=== PATIENT | female | born 1995 | race Caucasian/White ===

== ENCOUNTER 2020-02-19 09:15 | Inpatient (IN) | payer BC ==
[~2020-02-19] VITALS: Ht 172.7 cm; Wt 93.0 kg
--- NOTE | 2020-02-19 09:28 | NUR ---
Dr. Hayden at bedside for MSE
[2020-02-19 09:39] LABS: *BILIRUBIN,URIN NEGATIVE (NEGATIVE); *BLOOD, URINE 3+ (NEGATIVE); *CLARITY,URINE CLOUDY (CLEAR); *COLOR,URINE DARK YELLOW (YELLOW); *KETONES,URINE 2+ (NEGATIVE); *UROBILINOGEN,URINE 0.2 E.U./dl (NORMAL); LEUKOCYTE ESTERASE ,URINE 2+ (NEGATIVE); NITRITE, URINE POSITIVE (NEGATIVE); UGLUCOSE NEGATIVE (NEGATIVE)
[2020-02-19 09:42] LABS: BASOPHILS # (AUTO) 0.1 K/uL (0.0-8.0); BASOPHILS % (AUTO) 0.4 % (0.0-2.0); EOSINOPHILS % (AUTO) 0.1 % (0.0-7.0); HEMATOCRIT 42.5 % (31.2-41.9); HEMOGLOBIN 14.1 g/dL (10.9-14.3); LYMPHOCYTES # (AUTO) 0.6 K/uL (20.0-40.0); LYMPHOCYTES % (AUTO) 2.4 % (20.5-51.5); MEAN CORPUSCULAR HEMOGLOBIN 28.4 uug (24.7-32.8); MEAN CORPUSCULAR HGB CONC 33 g/dL (32.3-35.6); MONOCYTES # (AUTO) 1.2 K/uL (2.0-10.0); MONOCYTES % (AUTO) 4.4 % (0.0-11.0); NEUTROPHILS # (AUTO) 24.1 K/uL (1.8-8.9); NEUTROPHILS % (AUTO) 92.7 % (38.5-71.5); PLATELET COUNT (AUTO) 294 K/uL (179-408); RED BLOOD CELL COUNT(AUTO) 4.95 MIL/uL (3.63-4.92)
[2020-02-19] MEDS ORDERED: ONDANSETRON 4 MG/2 ML VIAL ONE (09:43)
[2020-02-19 09:45] LABS: *URINE HCG, QUAL NEGATIVE (NEGATIVE)
[2020-02-19] MEDS ORDERED: ONDANSETRON 4 MG/2 ML VIAL IV ONE (09:45)
[2020-02-19] MEDS ORDERED: IV NORMAL SALINE 1000 ML BAG IV ONE (09:45)
[2020-02-19 09:55] LABS: BILIRUBIN,DIRECT 0.2 mg/dL (0.0-0.2); BILIRUBIN,TOTAL 0.7 mg/dL (0.2-1.0); CREATININE 1.1 mg/dL (0.6-1.3); TOTAL PROTEIN, SERUM 8.4 g/dL (6.4-8.2)
[2020-02-19] MEDS ORDERED: KETOROLAC TROMETHAMINE 30 MG INJ ONE (09:58)
[2020-02-19] MEDS ORDERED: KETOROLAC TROMETHAMINE 30 MG INJ IVP ONE (10:00)
--- NOTE | 2020-02-19 11:14 | NUR ---
Called Dr. Chiang (Urologist) for consult per Dr. Hayden [phone]
[2020-02-19] MEDS ORDERED: CEFTRIAXONE 2 G in IV DEXTROSE 5% 100 ML IV ONE (11:15)
--- NOTE | 2020-02-19 11:15 | NUR ---
Pt. admitted to [facility] , under care of CRISTA MITCHELL Belongs List completed
[2020-02-19] MEDS ORDERED: CEFTRIAXONE /D5W 50ML IVPB **ER PYXIS IV ONE (11:20)
[2020-02-19] MEDS ORDERED: HYDROMORPHONE 1 MG/1 ML DISP.SYRIN IV ONE (12:15)
[2020-02-19] MEDS ORDERED: HYDROMORPHONE 1 MG/1 ML DISP.SYRIN ONE (12:20)
--- NOTE | 2020-02-19 12:23 | NUR ---
Rocephin 2G IV done infusing. no ASE noted
--- NOTE | 2020-02-19 12:40 | NUR ---
Attempted to give report, Nurse not available
[2020-02-19] MEDS ORDERED: METOCLOPRAMIDE HCL 10 MG/2 ML VIAL ONE (12:56)
[2020-02-19] MEDS ORDERED: METOCLOPRAMIDE HCL 10 MG/2 ML VIAL IV ONE (13:00)
[2020-02-19 13:57] VITALS: BP 136/76
[2020-02-19] MEDS ORDERED: Z GUARD REMEDY PASTE 57 GM TUBE TOP PRN (14:15)
[2020-02-19] MEDS ORDERED: MAGNESIUM HYDROXIDE 30 ML LIQUID UDC PO PRN (14:15)
[2020-02-19] MEDS ORDERED: HYDROCODONE/APAP 5-325MG TABLET PO PRN (14:15)
[2020-02-19] MEDS: IV NS 1000 ML 1,000 ML IV PRN (14:53)
[2020-02-19] MEDS: ONDANSETRON 4 MG/2 ML VIAL IV PRN ×2 (14:54→20:01)
[2020-02-19] MEDS: MORPHINE SULFATE 2 MG/1 ML DISP.SYRIN IV PRN ×2 (14:55→20:03)
[2020-02-19] MEDS: ACETAMINOPHEN 325 MG TABLET PO PRN (14:55)
[2020-02-19 15:05] LABS: BACTERIA,URINE MANY /HPF (NONE SEEN); RBC,URINE 50-80 /HPF (0-3); SQUAMOUS EPITHELIAL CELL,UR FEW /HPF (NONE SEEN); WBC,URINE TNTC /HPF (0-3)
--- NOTE | 2020-02-19 19:30 | NUR ---
RECEIVED IN BED ALERT ORIENTED, NO COMPLAIN OF PAIN AT THIS TIME, NO N/V AT THIS TIME. PATIENT ATE APPLE SAUCE AND DRANK JUICES, CONT TO MONITOR.
[2020-02-19 19:59] VITALS: BP 110/62
--- NOTE | 2020-02-19 20:30 | NUR ---
PATIENT HAS EPISODE OF NAUSEA AND VOMITING, VOMIT WITH WHITISH COLOR FLUIDS APPROX AMOUNT 200CC, ZOFRAN IV GIVEN ORDERED, WITH EFFECTIVE RESULT, CONT TO MONITOR.
[2020-02-20] MEDS: ONDANSETRON 4 MG/2 ML VIAL IV PRN ×3 (01:20→13:36)
--- NOTE | 2020-02-20 02:00 | NUR ---
PATIENT HAS ANOTHER EPISODE OF NAUSEA AND VOMITING WITH SMALL AMOUNT VOMITUS, WHITISH COLOR, ZOFRAN IV WAS GIVEN WITH EFFECTIVE RESULTS. INSTRUCTED PATIENT NOT DRINK OR EAT AT THIS TIME, ICE CHIP WAS GIVEN, CONT TO MONITOR.
[2020-02-20] MEDS: MORPHINE SULFATE 2 MG/1 ML DISP.SYRIN IV PRN ×5 (02:16→23:10)
[2020-02-20] MEDS: IV NS 1000 ML 1,000 ML IV PRN ×2 (03:51→23:11)
[2020-02-20 04:52] VITALS: BP 133/77
[2020-02-20 06:21] LABS: BASOPHILS % (AUTO) 0.2 % (0.0-2.0); HEMATOCRIT 37.5 % (31.2-41.9); HEMOGLOBIN 12.5 g/dL (10.9-14.3); LYMPHOCYTES # (AUTO) 1.2 K/uL (20.0-40.0); LYMPHOCYTES % (AUTO) 6.4 % (20.5-51.5); MEAN CORPUSCULAR HEMOGLOBIN 28.8 uug (24.7-32.8); MEAN CORPUSCULAR HGB CONC 33 g/dL (32.3-35.6); MEAN CORPUSCULAR VOLUME 86.7 fL (75.5-95.3); MONOCYTES # (AUTO) 1.1 K/uL (2.0-10.0); MONOCYTES % (AUTO) 5.7 % (0.0-11.0); NEUTROPHILS # (AUTO) 16.6 K/uL (1.8-8.9); NEUTROPHILS % (AUTO) 87.7 % (38.5-71.5); PLATELET COUNT (AUTO) 248 K/uL (179-408); RED BLOOD CELL COUNT(AUTO) 4.33 MIL/uL (3.63-4.92)
[2020-02-20 06:44] LABS: BILIRUBIN,TOTAL 0.5 mg/dL (0.2-1.0); CREATININE 1.1 mg/dL (0.6-1.3); MAGNESIUM 1.8 mg/dL (1.8-2.4); PHOSPHOROUS 2.5 mg/dL (2.5-4.9); POTASSIUM 3.6 mmol/L (3.5-5.1); TOTAL PROTEIN, SERUM 7.5 g/dL (6.4-8.2)
--- NOTE | 2020-02-20 06:54 | NUR ---
PATIENT ALERT ORIENTED, CONT ON PAIN MANAGEMENT DUE ABDOMINAL PAIN. PATIENT GAVE ZOFRAN IV FOR NAUSEA AND VOMITING. ENCOURAGE PATIENT NOT DRINK FLUIDS OR EAT AT THIS TIME, GIVEN ICE CHIPS. PATIENT RESTING AT THIS TIME. CONT TO MONITOR.
--- NOTE | 2020-02-20 07:08 | NUR ---
PATIENT HAS TEMP 100.3, COOLING MEASURE WAS GIVEN, ENDORSED TO NEXT SHIFT.
[2020-02-20] MEDS ORDERED: PROCHLORPERAZINE EDISYLATE 10 MG/2 ML VIAL IM ONE (11:45)
[2020-02-20] MEDS: CEFTRIAXONE 1 G in IV DEXTROSE 5% 50 ML IV SCH (13:36)
[2020-02-20 15:41] VITALS: BP 125/63
[2020-02-20] MEDS: ACETAMINOPHEN 325 MG TABLET PO PRN (15:48)
--- NOTE | 2020-02-20 19:00 | NUR ---
PATIENT ALERT ORIENTED, NO SOB NO CHEST PAIN. PATIENT CONTINUE ON PAIN MANAGEMENT DUE ABDOMINAL PAIN. PATIENT STILL HAS EPISODE OF NAUSEA AND VOMITING, WILL MEDICATE PATIENT ORDERED, KEPT COMFORTABLE.
[2020-02-20 20:03] VITALS: BP 110/62
[2020-02-20] MEDS ORDERED: PROCHLORPERAZINE EDISYLATE 10 MG/2 ML VIAL ONE (20:48)
[2020-02-20] MEDS: PROCHLORPERAZINE EDISYLATE 10 MG/2 ML VIAL IV PRN (21:02)
[2020-02-21 04:00] VITALS: BP 130/59
[2020-02-21] MEDS: PROCHLORPERAZINE EDISYLATE 10 MG/2 ML VIAL IV PRN ×3 (05:34→22:32)
[2020-02-21] MEDS: MORPHINE SULFATE 2 MG/1 ML DISP.SYRIN IV PRN ×4 (05:35→23:53)
--- NOTE | 2020-02-21 05:56 | NUR ---
PATIENT ALERT ORIENTED, GIVEN COMPAZINE IV FOR NAUSEA AND VOMITING. GIVEN MORPHINE IV ORDERED COMPLAIN OF ABDOMINAL PAIN. PATIENT CLAIMED THAT SHE HIT HER HEAD ACCIDENTALLY AT THE SINK DURING EPISODE OF VOMITING WHILE IN THE TOILET. PATIENT SAID SHE'S DUSTIN. PATIENT HAS NO VISIBLE INJURY NOTED, NO BUMPS, NO BRUISING, NO LOSS OF CONSCIOUSNESS NOTED, SHE SAID JUST LITTLE PAIN. CONT TO MONITOR.
[2020-02-21 06:20] LABS: BASOPHILS # (AUTO) 0.1 K/uL (0.0-8.0); BASOPHILS % (AUTO) 0.6 % (0.0-2.0); EOSINOPHILS % (AUTO) 0.4 % (0.0-7.0); HEMATOCRIT 35.9 % (31.2-41.9); HEMOGLOBIN 11.8 g/dL (10.9-14.3); LYMPHOCYTES # (AUTO) 1.2 K/uL (20.0-40.0); LYMPHOCYTES % (AUTO) 10.6 % (20.5-51.5); MEAN CORPUSCULAR HEMOGLOBIN 28.5 uug (24.7-32.8); MEAN CORPUSCULAR HGB CONC 33 g/dL (32.3-35.6); MEAN CORPUSCULAR VOLUME 86.6 fL (75.5-95.3); MONOCYTES # (AUTO) 0.9 K/uL (2.0-10.0); MONOCYTES % (AUTO) 8.3 % (0.0-11.0); NEUTROPHILS # (AUTO) 8.9 K/uL (1.8-8.9); NEUTROPHILS % (AUTO) 80.1 % (38.5-71.5); PLATELET COUNT (AUTO) 223 K/uL (179-408); RED BLOOD CELL COUNT(AUTO) 4.14 MIL/uL (3.63-4.92); WHITE BLOOD COUNT (AUTO) 11.1 K/uL (3.8-11.8)
[2020-02-21 06:28] LABS: CREATININE 0.9 mg/dL (0.6-1.3); MAGNESIUM 1.9 mg/dL (1.8-2.4); PHOSPHOROUS 1.9 mg/dL (2.5-4.9); POTASSIUM 3.3 mmol/L (3.5-5.1)
[2020-02-21 07:38] VITALS: BP 105/63
--- NOTE | 2020-02-21 07:45 | NUR ---
Received pt in bed awake AOx4, reported by PM shift that pt hit her forehead in the sink. Denies pain on the forehead, no bruising and swelling noted at this time. No changes of LOC. On RA with no SOB and distress noted at this time. Stated no nausea or vomiting at this time. JOHN Midline 18g running NS@75cc. Stated wanted to give herself a sponge bath, ambulated steady to the bathroom. Bed locked in lowest position with siderails 2x up. Call light and phone within reach. No other complaints at this time. Will monitor
[2020-02-21] MEDS: POTASSIUM CHLORIDE 50 ML IV SCH ×2 (11:35→13:03)
[2020-02-21] MEDS: ACETAMINOPHEN 325 MG TABLET PO PRN (12:16)
[2020-02-21] MEDS: IV NS 1000 ML 1,000 ML IV PRN (13:25)
[2020-02-21 13:42] VITALS: BP 133/81
[2020-02-21] MEDS: CEFTRIAXONE 1 G in IV DEXTROSE 5% 50 ML IV SCH (14:25)
[2020-02-21] MEDS ORDERED: NEUTRA PHOS PACKET PO ONE (16:15)
[2020-02-21 16:40] VITALS: BP 123/73
--- NOTE | 2020-02-21 18:19 | NUR ---
Pt stable throughout shift, on bed awake AOx4, no bruising or swelling on forehead and no change of LOC. Pt stated she feels a lot better today. On RA with no SOB or distress noted at this time. Stated felt a little nauseous after dinner with no emesis, but got better. Reeducated to stay in high corral's position after meals, verbalized understanding. No emesis throughout shift. IV on JOHN midline flushed, intact and patent. Been ambulating to bathroom with steady gait. Bed locked in lowest position with siderails 2x up. Call light and phone within reach.
--- NOTE | 2020-02-21 19:07 | NUR ---
Pt called and stated that she had an episode of emesis. 20mL of yellow mucoid emesis, will complaints of nausea. Saltine crackers given. Complained of 8/10 pain on left lateral abdomen. Will endorse to next shift for PRN medications. Patient made aware, verbalized understanding.
--- NOTE | 2020-02-21 19:42 | NUR ---
Received patient awake and alert in bed, A/Ox4. no signs of acute distress noted. Complains of 6/10 pain in the lower back. No SOB. Vitals WNL. IVF running on left upper midline. No s/s of infiltration of infection noted. Safety measures initiated. Bed is low and locked, call light within reach. Will continue to monitor.
[2020-02-21 20:10] VITALS: BP 134/80
--- NOTE | 2020-02-22 | NUR ---
Dressing to left upper midline changed
[2020-02-22] MEDS: IV NS 1000 ML 1,000 ML IV PRN (03:26)
[2020-02-22 05:21] VITALS: BP 140/79
[2020-02-22 07:59] LABS: BASOPHILS # (AUTO) 0.1 K/uL (0.0-8.0); BASOPHILS % (AUTO) 0.8 % (0.0-2.0); EOSINOPHILS # (AUTO) 0.1 K/uL (0.0-0.7); EOSINOPHILS % (AUTO) 1.6 % (0.0-7.0); HEMATOCRIT 37.1 % (31.2-41.9); HEMOGLOBIN 12.3 g/dL (10.9-14.3); LYMPHOCYTES # (AUTO) 1.1 K/uL (20.0-40.0); LYMPHOCYTES % (AUTO) 17.3 % (20.5-51.5); MEAN CORPUSCULAR HEMOGLOBIN 28.6 uug (24.7-32.8); MEAN CORPUSCULAR HGB CONC 33 g/dL (32.3-35.6); MEAN CORPUSCULAR VOLUME 86.4 fL (75.5-95.3); MONOCYTES # (AUTO) 0.7 K/uL (2.0-10.0); MONOCYTES % (AUTO) 10.3 % (0.0-11.0); NEUTROPHILS # (AUTO) 4.6 K/uL (1.8-8.9); PLATELET COUNT (AUTO) 255 K/uL (179-408); RED BLOOD CELL COUNT(AUTO) 4.29 MIL/uL (3.63-4.92); WHITE BLOOD COUNT (AUTO) 6.5 K/uL (3.8-11.8)
--- NOTE | 2020-02-22 08:00 | NUR ---
PATIENT ALERT ORIENTED, NO SOB NO CHEST PAIN. PATIENT HAS NO PAIN, NO NAUSEA NO VOMITING. PATIENT WILL BE DISCHARGE HOME PER RASHIDA MITCHELL.
[2020-02-22 08:27] LABS: CREATININE 0.9 mg/dL (0.6-1.3); PHOSPHOROUS 2.4 mg/dL (2.5-4.9); POTASSIUM 3.2 mmol/L (3.5-5.1)
[2020-02-22 11:11] VITALS: BP_SYST 141; BP_SYST 171; BP_DIAS 81
[2020-02-22 11:12] VITALS: BP 141/81
[2020-02-22] MEDS ORDERED: POTASSIUM CHLORIDE 20 MEQ TAB.PRT.SR PO ONE (11:15)
--- NOTE | 2020-02-22 12:14 | NUR ---
PATIENT DISCHARGE HOME, PICKED UP BY MOTHER VIA PRIVATE CAR. PATIENT WAS GIVEN DISCHARGE PAPERS INCLUDING PRESCRIPTIONS. PATIENT TOOK ALL BELONGINGS.
--- NOTE | 2020-02-22 12:16 | NUR ---
PATIENT MIDLINE WAS REMOVED.
== END 2020-02-22 12:10 | disposition home or self-care (01) | DRG 690 ==
LOC: ER 09:15 → MEDSURG3 13:04
PROVIDERS: ADMIT Nurse Practitioner Acute Care; ATTEND Nurse Practitioner Acute Care
PROC: 05H633Z Insertion of Infusion Device into Left Subclavian Vein, Percutaneous Approach (ICD-10-PCS; principal; 2020-02-20)
PROC: B547ZZA Ultrasonography of Left Subclavian Vein, Guidance (ICD-10-PCS; principal; 2020-02-20)
DX: N11.0 Nonobstructive reflux-associated chronic pyelonephritis (principal); K50.90 Crohn's disease, unspecified, without complications; Z90.49 Acquired absence of other specified parts of digestive tract; K76.0 Fatty (change of) liver, not elsewhere classified; E66.9 Obesity, unspecified; E87.6 Hypokalemia; Z87.440 Personal history of urinary (tract) infections; Z71.6 Tobacco abuse counseling; B96.20 Unspecified Escherichia coli [E. coli] as the cause of diseases classified elsewhere; D72.829 Elevated white blood cell count, unspecified; Z68.31 Body mass index [BMI] 31.0-31.9, adult; N13.6 Pyonephrosis; F17.210 Nicotine dependence, cigarettes, uncomplicated; F12.90 Cannabis use, unspecified, uncomplicated
CPT/HCPCS: 36415; 71045; 83605; 83690; 83735; 84100; 84703; 85025; 87040; 87077; 87086; A4663; G0378; J0696; J0780; J1170; J1885; J2270; J2405; J2765; J3480; J7030; J7060

== ENCOUNTER 2020-09-17 02:25 | Emergency (ER) | payer BC ==
[~2020-09-17] VITALS: Ht 172.7 cm; Wt 63.5 kg
[2020-09-17] MEDS ORDERED: KETOROLAC TROMETHAMINE 15 MG INJ ONE (03:12)
[2020-09-17] MEDS ORDERED: ONDANSETRON 4 MG/2 ML VIAL ONE ×2 (03:15→09:22)
[2020-09-17] MEDS ORDERED: SULFAMETH/TRIMETH 800/160 MG TABLET PO ONE (06:30)
[2020-09-17] MEDS ORDERED: CEFTRIAXONE 1 G in IV DEXTROSE 5% 50 ML IV ONE (09:00)
[2020-09-17] MEDS ORDERED: CEFTRIAXONE /D5W 50ML IVPB **ER PYXIS IV ONE (09:09)
[2020-09-17] MEDS ORDERED: ONDANSETRON 4 MG/2 ML VIAL IV ONE (09:15)
[2020-09-17] MEDS ORDERED: ACETAMINOPHEN 325 MG TABLET PO ONE (09:15)
[2020-09-17] MEDS ORDERED: ACETAMINOPHEN 325 MG TABLET ONE (09:22)
[2020-09-17 14:16] LABS: *CLARITY,URINE HAZY (CLEAR); *COLOR,URINE YELLOW (YELLOW); *URINE HCG, QUAL NEG (NEGATIVE)
[2020-09-17 14:17] LABS: *BILIRUBIN,URIN 1+ (NEGATIVE); *BLOOD, URINE 2+ (NEGATIVE); *KETONES,URINE 2+ (NEGATIVE); *UROBILINOGEN,URINE 0.2 E.U./dl (NORMAL); LEUKOCYTE ESTERASE ,URINE 2+ (NEGATIVE); NITRITE, URINE NEGATIVE (NEGATIVE); UGLUCOSE NEGATIVE (NEGATIVE)
[2020-09-17 14:19] LABS: HEMATOCRIT 41.8 % (37-47); HEMOGLOBIN 13.8 G/DL (12.0-16.0); RED BLOOD CELL COUNT(AUTO) 4.92 MIL/UL (4.2-5.4); WHITE BLOOD COUNT (AUTO) 17.5 K/UL (4.0-11.2)
[2020-09-17 14:20] LABS: BASOPHILS % (AUTO) 0.2 % (0.0-2.0); LYMPHOCYTES % (AUTO) 5.8 % (20.5-51.5); MEAN CORPUSCULAR HEMOGLOBIN 28.1 UUG (27.0-31.0); MEAN CORPUSCULAR HGB CONC 33 g/dL (32.0-37.0); MONOCYTES % (AUTO) 3.1 % (0.0-11.0); NEUTROPHILS % (AUTO) 90.9 % (38.5-71.5); PLATELET COUNT (AUTO) 340 K/UL (150-450)
[2020-09-17 14:23] LABS: MONOCYTES # (AUTO) 0.5 K/UL (0.1-1.30); NEUTROPHILS # (AUTO) 15.9 K/UL (1.8-8.9)
[2020-09-17 14:26] LABS: BILIRUBIN,DIRECT 0.1 mg/dL (0.0-0.2); BILIRUBIN,TOTAL 0.5 mg/dL (0.2-1.0); CREATININE 0.9 mg/dL (0.6-1.3); POTASSIUM 3.9 mmol/L (3.5-5.1)
[2020-09-17 14:27] LABS: TOTAL PROTEIN, SERUM 8.3 g/dL (6.4-8.2)
[2020-09-17 14:30] LABS: BACTERIA,URINE MODERATE /HPF (NONE SEEN); SQUAMOUS EPITHELIAL CELL,UR MODERATE /HPF (NONE SEEN); WBC,URINE 80-100 /HPF (0-3)
== END 2020-09-17 13:40 | disposition short-term general hospital (02) ==
LOC: ER 02:25
DX: N12 Tubulo-interstitial nephritis, not specified as acute or chronic (principal); N13.30 Unspecified hydronephrosis; K50.90 Crohn's disease, unspecified, without complications; Z90.49 Acquired absence of other specified parts of digestive tract; D72.829 Elevated white blood cell count, unspecified; Z20.822 Contact with and (suspected) exposure to COVID-19
CPT/HCPCS: 36415; 74176; 76770; 80053; 81001; 82248; 84703; 85025; 87077; 87086; 87186 ×2; 87426; 96365; 96375; 99285; J0696; J1885; J2405 ×2; A4663